=== PATIENT | female | born 1995 | race Caucasian/White ===

== ENCOUNTER 2025-05-31 03:43 | Emergency (ER) | payer MEDICAID ==
[~2025-05-31] VITALS: Ht 165.1 cm; Wt 62.0 kg
[2025-05-31 03:45] VITALS: O2SAT 97
[2025-05-31] MEDS: KETOROLAC 15MG/ML VIAL IM ONE (04:27)
[2025-05-31] MEDS: LIDOCAINE 5% PATCH TOP SCH (04:28)
[2025-05-31] MEDS ORDERED: NAPR-1176 MT (05:47)
[2025-05-31] MEDS ORDERED: CYCL5TAB3 MT (05:47)
[2025-05-31] MEDS ORDERED: LIDO-53 TP (05:47)
[2025-05-31] MEDS: DIPHENHYDRAMINE 12.5MG/5ML UDC PO ONE (06:02)
[2025-05-31] MEDS: METOCLOPRAMIDE HCL 10MG TABLET PO ONE (06:03)
[2025-05-31] MEDS: ACETAMINOPHEN 500MG TABLET PO ONE (06:03)
[2025-05-31 07:20] VITALS: BP 112/57; PULSE 82; RESP 12; TEMP 36.6; O2SAT 98
== END 2025-05-31 07:25 | disposition home or self-care (01) ==
LOC: ER 03:43
DX: S09.90XA Unspecified injury of head, initial encounter (principal); F10.129 Alcohol abuse with intoxication, unspecified; M25.562 Pain in left knee; R07.89 Other chest pain; X58.XXXA Exposure to other specified factors, initial encounter; Y93.89 Activity, other specified; Y92.89 Other specified places as the place of occurrence of the external cause; Y99.8 Other external cause status; Y90.9 Presence of alcohol in blood, level not specified
CPT/HCPCS: 99285; 70450; 81025; 71111; 73564; 96372; J1885; J8597; Q0163